=== PATIENT | male | born 1965 | race Caucasian/White ===

== ENCOUNTER → 2021-12-23 | Outpatient (CLI) | payer OTHER ==
--- NOTE | 2021-12-23 10:46 | XR ---
EXAMINATION TYPE: XR tibia fibula LT DATE OF EXAM: 12/23/2021 CLINICAL HISTORY: Recent sudden onset pain after exercise TECHNIQUE: Two views of the left leg are obtained. COMPARISON: None. FINDINGS: There is no acute fracture or dislocation seen in the left tibia or fibula. An os trigonum incidentally noted. Mild to moderate diffuse subcutaneous edema. Tiny bony projection medial aspect proximal tibial metaphysis and proximal to mid diaphysis on frontal view, distal bony projection also seen on lateral view posteriorly. Possible osteochondromas. If pain is localized to these levels fol low-up imaging would be advised to further evaluate. IMPRESSION: As above.
== END | disposition home or self-care (01) ==
LOC: RADXRMAIN 09:55
PROVIDERS: ATTEND Emergency Medicine
DX: S86.112S Strain of other muscle(s) and tendon(s) of posterior muscle group at lower leg level, left leg, sequela (principal); I82.409 Acute embolism and thrombosis of unspecified deep veins of unspecified lower extremity; X58.XXXS Exposure to other specified factors, sequela